=== PATIENT | female | born 1955 | race Caucasian/White ===

== ENCOUNTER 2020-05-27 06:57 | Outpatient (REF) | payer OTHER, SELFPAY ==
[2020-05-27 07:11] LABS: Hematocrit 39.5 % (37-47); Hemoglobin 12.3 g/dl (12.0-16.0); Mean Corpuscular HGB Conc 31.1 g/dl (31.0-35.0); Mean Corpuscular Hemoglobin 24.9 pg (27.0-33.0); Mean Platelet Volume 11.9 fL (9.4-12.3); Platelet Count 361 X10*3/uL (160-400); Red Blood Count 4.94 X10*6/uL (4.20-5.50); Red Cell Distribution Width 13.2 % (11.0-16.0); White Blood Count 5.7 X10*3/uL (4.8-10.8)
[2020-05-27 07:42] LABS: Alanine Aminotransferase 8 U/L (0-31); Albumin Level 3.5 g/dL (3.5-5.0); Alkaline Phosphatase 56 U/L (39-117); Anion Gap 15 (12-20); Aspartate Amino Transferase 9 U/L (5-31); Bilirubin Total 0.4 mg/dL (0.0-1.0); Blood Urea Nitrogen 37 mg/dL (9-16); Calcium 9.1 mg/dL (8.4-10.2); Carbon Dioxide 27 mmol/L (22-29); Chloride 102 mmol/L (96-108); Estimated Glomerular Filt Rate 44; Glucose Random 185 mg/dL (60-115); Potassium 4.2 mmol/l (3.3-5.1); Sodium 140 mmol/L (135-145); Total Protein 7.7 g/dL (6.5-8.0)
== END 2020-05-27 06:58 | disposition home or self-care (01) ==
LOC: HO.MMNH1L 06:57
PROVIDERS: Visit Provider Family Medicine
DX: I10 Essential (primary) hypertension (principal); E78.5 Hyperlipidemia, unspecified; Z86.19 Personal history of other infectious and parasitic diseases
CPT/HCPCS: 36415; 80053; 85027

== ENCOUNTER 2020-05-31 | Outpatient (REF) | payer OTHER, SELFPAY ==
[2020-05-31 07:04] LABS: Anion Gap 14 (12-20); Blood Urea Nitrogen 52 mg/dL (9-16); Calcium 8.5 mg/dL (8.4-10.2); Carbon Dioxide 25 mmol/L (22-29); Chloride 105 mmol/L (96-108); Estimated Glomerular Filt Rate 45; Glucose Random 164 mg/dL (60-115); Hematocrit 36.5 % (37-47); Hemoglobin 11.3 g/dl (12.0-16.0); Mean Corpuscular Hemoglobin 24.9 pg (27.0-33.0); Mean Corpuscular Volume 80.4 fL (80-98); Mean Platelet Volume 12.2 fL (9.4-12.3); Platelet Count 259 X10*3/uL (160-400); Potassium 4.3 mmol/l (3.3-5.1); Red Blood Count 4.54 X10*6/uL (4.20-5.50); Red Cell Distribution Width 13.2 % (11.0-16.0); Sodium 140 mmol/L (135-145)
== END 2020-05-31 00:01 | disposition home or self-care (01) ==
LOC: HO.MMNH1L
PROVIDERS: Visit Provider Family Medicine
DX: R79.9 Abnormal finding of blood chemistry, unspecified (principal)
CPT/HCPCS: 36415; 80048; 85027

== ENCOUNTER 2020-06-02 04:46 | Outpatient (REF) | payer OTHER, SELFPAY ==
[2020-06-02 05:41] LABS: Hematocrit 37.6 % (37-47); Hemoglobin 11.6 g/dl (12.0-16.0); Mean Corpuscular HGB Conc 30.9 g/dl (31.0-35.0); Mean Corpuscular Hemoglobin 25.1 pg (27.0-33.0); Mean Corpuscular Volume 81.4 fL (80-98); Mean Platelet Volume 12.4 fL (9.4-12.3); Platelet Count 239 X10*3/uL (160-400); Red Blood Count 4.62 X10*6/uL (4.20-5.50); Red Cell Distribution Width 13.2 % (11.0-16.0); White Blood Count 7.5 X10*3/uL (4.8-10.8)
[2020-06-02 05:57] LABS: Alanine Aminotransferase 9 U/L (0-31); Albumin Level 3.6 g/dL (3.5-5.0); Alkaline Phosphatase 55 U/L (39-117); Anion Gap 12 (12-20); Aspartate Amino Transferase 9 U/L (5-31); Bilirubin Total 0.4 mg/dL (0.0-1.0); Blood Urea Nitrogen 40 mg/dL (9-16); Calcium 9.3 mg/dL (8.4-10.2); Carbon Dioxide 29 mmol/L (22-29); Chloride 105 mmol/L (96-108); Estimated Glomerular Filt Rate 37; Glucose Random 170 mg/dL (60-115); Potassium 3.9 mmol/l (3.3-5.1); Sodium 142 mmol/L (135-145); Total Protein 7.4 g/dL (6.5-8.0)
[2020-06-02 14:52] LABS: Glucose Urine UA NEG (NEG); Leukocyte Esterase Urine NEG (NEG); Nitrite Urine NEG (NEG); PH 5.5 (5.0-8.0); Specific Gravity - Urine >= 1.030 (1.005-1.025); Urine Blood NEG (NEG); Urine Ketones NEG (NEG); Urine Protein NEG (NEG-TRACE)
[2020-06-02 14:54] LABS: Appearance Urine HAZY; Color Urine YELLOW
== END 2020-06-02 04:47 | disposition home or self-care (01) ==
LOC: HO.MMNH1L 04:46
PROVIDERS: Visit Provider Family Medicine
DX: U07.1 COVID-19 (principal)
CPT/HCPCS: 36415; 80053; 81003; 85027; 87086

== ENCOUNTER 2020-06-07 | Outpatient (REF) | payer OTHER, SELFPAY ==
[2020-06-07 08:03] LABS: Hematocrit 37.1 % (37-47); Hemoglobin 11.4 g/dl (12.0-16.0); Mean Corpuscular HGB Conc 30.7 g/dl (31.0-35.0); Mean Corpuscular Hemoglobin 24.8 pg (27.0-33.0); Mean Corpuscular Volume 80.8 fL (80-98); Mean Platelet Volume 13.1 fL (9.4-12.3); Platelet Count 149 X10*3/uL (160-400); Red Blood Count 4.59 X10*6/uL (4.20-5.50); Red Cell Distribution Width 13.5 % (11.0-16.0); White Blood Count 6.7 X10*3/uL (4.8-10.8)
[2020-06-07 08:16] LABS: PLT ABN DIST 1
[2020-06-07 08:24] LABS: Anion Gap 12 (12-20); Blood Urea Nitrogen 34 mg/dL (9-16); Calcium 8.9 mg/dL (8.4-10.2); Carbon Dioxide 30 mmol/L (22-29); Chloride 105 mmol/L (96-108); Estimated Glomerular Filt Rate 48; Glucose Random 111 mg/dL (60-115); Potassium 3.6 mmol/l (3.3-5.1); Sodium 143 mmol/L (135-145)
== END 2020-06-07 00:01 ==
LOC: HO.MMNH1L
PROVIDERS: Visit Provider Family Medicine
DX: U07.1 COVID-19 (principal); I10 Essential (primary) hypertension; E78.5 Hyperlipidemia, unspecified
CPT/HCPCS: 36415; 80048; 85027

== ENCOUNTER 2020-06-14 | Outpatient (REF) | payer MEDICARE, OTHER, SELFPAY ==
[2020-06-14 07:35] LABS: Red Cell Distribution Width 13.4 % (11.0-16.0)
[2020-06-14 07:37] LABS: Hematocrit 34.3 % (37-47); Hemoglobin 10.5 g/dl (12.0-16.0); Mean Corpuscular HGB Conc 30.6 g/dl (31.0-35.0); Mean Corpuscular Hemoglobin 24.6 pg (27.0-33.0); Mean Corpuscular Volume 80.5 fL (80-98); Mean Platelet Volume 13.4 fL (9.4-12.3); Platelet Count 138 X10*3/uL (160-400); Red Blood Count 4.26 X10*6/uL (4.20-5.50); White Blood Count 5.6 X10*3/uL (4.8-10.8)
[2020-06-14 08:00] LABS: PLT ABN DIST 1
[2020-06-14 08:04] LABS: Anion Gap 12 (12-20); Blood Urea Nitrogen 17 mg/dL (9-16); Calcium 8.6 mg/dL (8.4-10.2); Carbon Dioxide 33 mmol/L (22-29); Chloride 101 mmol/L (96-108); Estimated Glomerular Filt Rate > 60; Glucose Random 97 mg/dL (60-115); Potassium 3.4 mmol/l (3.3-5.1); Sodium 143 mmol/L (135-145)
== END 2020-06-14 00:01 ==
LOC: HO.MMNH1L
PROVIDERS: Visit Provider Family Medicine
DX: I10 Essential (primary) hypertension (principal); E78.5 Hyperlipidemia, unspecified; U07.1 COVID-19
CPT/HCPCS: 36415; 80048; 85027